=== PATIENT | female | born 1985 | race Caucasian/White ===

== ENCOUNTER 2016-11-23 14:02 | Emergency (ER) | payer SELFPAY ==
[2016-11-23 14:38] VITALS: BP 130/87
--- NOTE | 2016-11-23 16:21 | ED ---
Influenza-Like Illness - HPI Summary HPI Summary: Patient presents with cough and congestion that has been hanging on for approximately 4-8 weeks without improvement. She is coughing up "brownish-green " mucus, and has the same when she blows her nose. She does not have a PCP since she is new to the area. She denies fever, chills, CP or back pain. She does feel SOB but is not in distress. She has some left sided facial discomfort over her sinus. - History of Current Complaint Chief Complaint: EDUpperRespComplaint Time Seen by Provider: 11/23/16 15:58 Hx Obtained From: Patient Onset/Duration: Gradual Onset Severity: Moderate Associated Signs & Symptoms: Cough, Nasal Congestion - Allergy/Home Medications Allergies/Adverse Reactions: Allergies Allergy/AdvReac Type Severity Reaction Status Date / Time No Known Allergies Allergy Verified 11/23/16 14:38 PMH/Surg Hx/FS Hx/Imm Hx Previously Healthy: Yes Infectious Disease History: No Infectious Disease History: Denies: Traveled Outside the [place] in Last 30 Days - Family History Known Family History: Positive: None - Social History Occupation: Employed Full-time Lives: With Family Alcohol Use: Occasionally Substance Use Type: Reports: None Smoking Status (MU): Never Smoked Tobacco Review of Systems Negative: Fever, Chills Positive: Nasal Discharge. Negative: Sore Throat, Ear Ache Negative: Chest Pain Positive: Shortness Of Breath, Cough Positive: Abdominal Pain Negative: Myalgia Negative: Headache All Other Systems Reviewed And Are Negative: Yes Physical Exam Triage Information Reviewed: Yes Vital Signs On Initial Exam: Initial Vitals Temp Pulse Resp BP Pulse Ox 97.9 F 68 15 130/87 100 11/23/16 14:05 11/23/16 14:05 11/23/16 14:05 11/23/16 14:05 11/23/16 14:05 Vital Signs Reviewed: Yes Appearance: Positive: Well-Appearing, No Pain Distress, Well-Nourished Skin: Positive: Warm, Skin Color Reflects Adequate Perfusion, Dry, Soft Head/Face: Positive: Normal Head/Face Inspection Eyes: Positive: EOMI, MADELYN, Conjunctiva Clear ENT: Positive: Hearing grossly normal, Pharynx normal, Nasal congestion. Negative: Tonsillar swelling, Tonsillar exudate Neck: Positive: Supple, Nontender, No Lymphadenopathy Respiratory/Lung Sounds: Positive: Clear to Auscultation, Breath Sounds Present. Negative: Rales, Rhonchi, Wheezes Cardiovascular: Positive: RRR Neurological: Positive: Sensory/Motor Intact, Alert, Oriented to Person Place, Time Psychiatric: Positive: Affect/Mood Appropriate AVPU Assessment: Alert Diagnostics - Vital Signs Vital Signs Temp Pulse Resp BP Pulse Ox 11/23/16 14:05 97.9 F 68 15 130/87 100 - Laboratory Lab Statement: Any lab studies that have been ordered have been reviewed, and results considered in the medical decision making process. - Radiology No standard instances Xray Interpretation: No Acute Changes Radiology Interpretation Completed By: Radiologist Flu Symptom Course/Dx - Diagnoses Differential Diagnosis/HQI/PQRI: Positive: Bronchitis, Influenza, Pneumonia, RSV , Upper Respiratory Infection Provider Diagnoses: Sinusitis Discharge - Discharge Plan Condition: Stable Disposition: HOME Prescriptions: Amoxicillin/Clavulanate TAB* [Augmentin TAB 875*] 875 mg PO BID #19 tab Patient Education Materials: Sinusitis (ED) Referrals: [facility] [Outside] Additional Instructions: Please call the number provided to establish care with a regular provider for follow-up care. Take the antibiotics provided until they are completely gone to insure appropriate treatment. Use over the counter nasal saline spray and cough syrup to manage your symptoms. Return to the emergency department if your symptoms worsen.
[2016-11-23] MEDS ORDERED: Amoxicillin/Clavulanate TAB* 875 MG PO ONE (16:39)
--- NOTE | 2016-11-23 16:53 | RAD ---
HISTORY: Chest congestion for 4 weeks COMPARISONS: None VIEWS: 2: Frontal dual-energy and lateral views of the chest. FINDINGS: CARDIOMEDIASTINAL SILHOUETTE: The cardiomediastinal silhouette is normal. ORIN: The orin are normal. PLEURA: The costophrenic angles are sharp. No pleural abnormalities are noted. LUNG PARENCHYMA: The lungs are clear. ABDOMEN: The upper abdomen is clear. There is no subphrenic gas. BONES AND SOFT TISSUES: No bone or soft tissue abnormalities are noted. OTHER: None. IMPRESSION: NO ACTIVE CARDIOPULMONARY DISEASE.
== END 2016-11-23 17:09 | disposition home or self-care (01) ==
LOC: ED 14:02
DX: J32.9 Chronic sinusitis, unspecified (principal)
CPT/HCPCS: 71020; 99282; A9270-GY

== ENCOUNTER 2017-12-24 10:35 | Emergency (ER) | payer MEDICAID ==
[2017-12-24 11:39] VITALS: BP 128/81
--- NOTE | 2017-12-24 13:23 | UC ---
Respiratory Complaint HPI - HPI Summary HPI Summary: 32 yo HF c/o cough for more than 1-2 months not improving associated with yellow /green and brownish sputum and pleuritic CP. at home smokes which is making her sx worse. Took no OTC meds for this condition. - History of Current Complaint Chief Complaint: UCRespiratory Stated Complaint: RESP ISSUE Time Seen by Provider: 12/24/17 13:08 Hx Obtained From: Patient Hx Last Menstrual Period: irregular, > 1 month ago Onset/Duration: Still Present Severity Initially: Moderate Severity Currently: Moderate Pain Intensity: 0 Character: Cough: Productive, Sputum Description: - SEE HPI Associated Signs And Symptoms: Negative: Fever, Chills - Allergies/Home Medications Allergies/Adverse Reactions: Allergies Allergy/AdvReac Type Severity Reaction Status Date / Time No Known Allergies Allergy Verified 12/24/17 11:39 PMH/Surg Hx/FS Hx/Imm Hx - Additional Past Medical History Additional PMH: none - Surgical History Surgical History: Yes Surgery Procedure, Year, and Place: ovarian cyst removed 2012 - Family History Known Family History: Positive: None - Social History Alcohol Use: Rare Substance Use Type: None Smoking Status (MU): Never Smoked Tobacco Household Exposure Type: Cigarettes Review of Systems Constitutional: Negative Skin: Negative Eyes: Negative ENT: Sinus Pain/Tenderness - with green d/c Respiratory: Cough Cardiovascular: Negative Gastrointestinal: Negative Genitourinary: Negative Motor: Negative Neurovascular: Negative Musculoskeletal: Negative Neurological: Negative Psychological: Negative Is Patient Immunocompromised?: No All Other Systems Reviewed And Are Negative: Yes Physical Exam Triage Information Reviewed: Yes Appearance: No Pain Distress Vital Signs: Initial Vital Signs Temp 36.4 C 12/24/17 11:34 Pulse 65 12/24/17 11:34 Resp 16 12/24/17 11:34 BP 128/81 12/24/17 11:34 Pulse Ox 100 12/24/17 11:34 Eye Exam: Normal ENT Exam: Normal Dental Exam: Normal Neck exam: Normal Neck: Positive: 1 Respiratory: Positive: Rhonchi - With cough Cardiovascular Exam: Normal Abdominal Exam: Normal Musculoskeletal Exam: Normal Neurological Exam: Normal Psychological Exam: Normal Skin Exam: Normal UC Diagnostic Evaluation - Laboratory O2 Sat by Pulse Oximetry: 100 Respiratory Course/Dx - Course Course Of Treatment: ongoing bronchitis and acute sinusitis due to cigarette exposure and after URI, will need to cover with abx for bacterial etiology, Mucinex as prescribed - Differential Dx/Diagnosis Differential Diagnosis/HQI/PQRI: Bronchitis, Lower Resp Infection, Sinusitis Provider Diagnoses: Bronchitis Sinusitis Discharge - Discharge Plan Condition: Stable Disposition: HOME Prescriptions: Azithromycin TAB* [Zithromax TAB (Z-ANDREW) 250 mg #6 tabs] 2 tab PO .TODAY, THEN 1 DAILY #1 andrew guaiFENesin ER TAB [Mucinex*] 600 mg PO BID 7 Days #14 tab.er Patient Education Materials: Acute Bronchitis (ED) Referrals: No Primary Care Phys,NOPCP [Primary Care Provider] - Additional Instructions: as tolerated
== END 2017-12-24 13:25 | disposition home or self-care (01) ==
LOC: UCEAST 10:35
DX: J40 Bronchitis, not specified as acute or chronic (principal); J32.9 Chronic sinusitis, unspecified; Z77.22 Contact with and (suspected) exposure to environmental tobacco smoke (acute) (chronic)
CPT/HCPCS: 87502; 99212; G0463

== ENCOUNTER 2018-01-04 21:33 | Emergency (ER) | payer SELFPAY ==
[2018-01-04] MEDS ORDERED: Acetaminophen TAB* 325 MG PO ONE (22:52)
[2018-01-04] MEDS ORDERED: Cyclobenzaprine TAB* 10 MG PO ONE (23:52)
[2018-01-04] MEDS ORDERED: Cyclobenzaprine TAB* 10 MG ONE (23:55)
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
[2018-01-05 00:50] VITALS: BP 116/56
--- NOTE | 2018-01-05 07:58 | RAD ---
INDICATION: Trauma, back pain. COMPARISON: There are no prior studies available for comparison. TECHNIQUE: 3 views of the lumbar spine were obtained including lateral, AP and a coned-down lateral view of the lumbar sacral junction. FINDINGS: The vertebra are in normal alignment. No fracture is seen. Disc spaces appear maintained. IMPRESSION: NO EVIDENCE FOR FRACTURE OR SUBLUXATION.
== END 2018-01-05 00:47 | disposition home or self-care (01) ==
LOC: ED 21:33
DX: S39.012A Strain of muscle, fascia and tendon of lower back, initial encounter (principal); M62.838 Other muscle spasm; V49.59XA Passenger injured in collision with other motor vehicles in traffic accident, initial encounter; Y92.9 Unspecified place or not applicable
CPT/HCPCS: 36415; 72100; 84702; 99282; A9270-GY

== ENCOUNTER 2018-03-08 06:26 | Emergency (ER) | payer OTHER ==
[2018-03-08] MEDS ORDERED: tiZANidine TAB* 2 MG PO ONE (06:52)
--- NOTE | 2018-03-08 08:32 | RAD ---
HISTORY: Back pain COMPARISONS: None TECHNIQUE: Multiple contiguous axial CT scans were obtained of the lumbar spine without intravenous contrast, with coronal and sagittal multiplanar reformations. FINDINGS: SPINAL CANAL: Evaluation of the central canal is limited on CT technique; however, there is no obvious canalicular mass or epidural hemorrhage. ALIGNMENT: The alignment is normal. VERTEBRAL BODIES: The vertebral bodies are preserved in height. The bones are normal in attenuation. Small accessory ribs are noted at L1. JOINTS: There is facet osteoarthritis at L5-S1. MUSCULATURE: Unremarkable INTERVERTEBRAL DISCS: There is mild diffuse loss of intervertebral disc height throughout the spine. AXIAL IMAGES: T12-L1: There is no osseous neural foraminal narrowing or central canal stenosis. L1-L2: There is no osseous neural foraminal narrowing or central canal stenosis. L2-L3: There is no osseous neural foraminal narrowing or central canal stenosis. L3-L4: There is no osseous neural foraminal narrowing or central canal stenosis. L4-L5: There is a mild broad-based disc bulge. There is no osseous neural foraminal narrowing or central canal stenosis. L5-S1: There is broad-based disc bulge. There is no osseous neural foraminal narrowing or central canal stenosis. SOFT TISSUES: The visualized soft tissues of the abdomen are unremarkable. OTHER: None IMPRESSION: MILD DEGENERATIVE DISC DISEASE AND OSTEOARTHRITIS. THERE IS NO SIGNIFICANT OSSEOUS NEURAL FORAMINAL NARROWING OR CENTRAL CANAL STENOSIS.
[2018-03-08] MEDS ORDERED: Bupivacaine 0.5%* 50 ML VIAL INJ ONE (08:40)
[2018-03-08] MEDS ORDERED: predniSONE TAB* 50 MG PO SCH (09:00)
[2018-03-08] MEDS ORDERED: Bupivacaine 0.5% PF 10 ML VIAL INJ ONE (09:15)
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
[2018-03-08 10:59] VITALS: BP 109/59
== END 2018-03-08 10:57 | disposition home or self-care (01) ==
LOC: ED 06:26
DX: M62.830 Muscle spasm of back (principal)
CPT/HCPCS: 36415; 72131; 84702; 96372; 99282; A9270-GY; J7512

== ENCOUNTER 2018-12-08 08:23 | Emergency (ER) | payer SELFPAY ==
[2018-12-08 08:37] VITALS: BP 141/94
--- NOTE | 2018-12-08 09:33 | UC ---
Respiratory Complaint HPI - HPI Summary HPI Summary: 3 days of cough, congestion, mild sore throat and ear pain. Has chest congestion and is coughing up green phlegm. Has chills but denies fever. No nausea/vomiting. - History of Current Complaint Chief Complaint: UCRespiratory Stated Complaint: COUGH,CONGESTION Time Seen by Provider: 12/08/18 09:11 Hx Obtained From: Patient Hx Last Menstrual Period: irregular, month ago Onset/Duration: Gradual Onset, Lasting Days, Still Present Timing: Constant Severity Initially: Moderate Severity Currently: Moderate Pain Intensity: 0 Pain Scale Used: 0-10 Numeric Character: Cough: Productive Aggravating Factors: Nothing Alleviating Factors: Nothing Associated Signs And Symptoms: Positive: Chills, Wheezing, URI, Nasal Congestion. Negative: Dyspnea, Fever - Allergies/Home Medications Allergies/Adverse Reactions: Allergies Allergy/AdvReac Type Severity Reaction Status Date / Time No Known Allergies Allergy Verified 03/08/18 08:28 Home Medications: Home Medications guaiFENesin LIQ* [Robitussin*] 5 ml PO PRN 12/08/18 [History] PMH/Surg Hx/FS Hx/Imm Hx Respiratory History: Asthma Other History Of: Negative For: Anticoagulant Therapy - Surgical History Surgical History: Yes Surgery Procedure, Year, and Place: ovarian cyst removed 2012 - Family History Known Family History: Positive: None - Social History Alcohol Use: Rare Substance Use Type: Marijuana Substance Use Comment - Amount & Last Used: rare Smoking Status (MU): Never Smoked Tobacco Household Exposure Type: Cigarettes Review of Systems All Other Systems Reviewed And Are Negative: Yes Constitutional: Positive: Chills, Fatigue ENT: Positive: Sore Throat, Ear Ache, Nasal Discharge Respiratory: Positive: Cough Cardiovascular: Positive: Negative Gastrointestinal: Positive: Negative Physical Exam Triage Information Reviewed: Yes Appearance: No Pain Distress, Well-Nourished, Ill-Appearing - APPEARS FATIGUED Vital Signs: Initial Vital Signs Temp 98.2 F 12/08/18 08:31 Pulse 92 12/08/18 08:31 Resp 18 12/08/18 08:31 BP 141/94 12/08/18 08:31 Pulse Ox 96 12/08/18 08:31 Vital Signs Reviewed: Yes Eyes: Positive: Conjunctiva Clear ENT: Positive: Hearing grossly normal, Pharynx normal, TMs normal Neck: Positive: Supple, Nontender, No Lymphadenopathy Respiratory Exam: Normal Cardiovascular Exam: Normal Abdomen Description: Positive: Soft Musculoskeletal: Positive: No Edema Neurological: Positive: Alert Psychological: Positive: Age Appropriate Behavior Skin: Negative: Rashes UC Diagnostic Evaluation - Laboratory O2 Sat by Pulse Oximetry: 96 Respiratory Course/Dx - Differential Dx/Diagnosis Provider Diagnosis: Acute URI Discharge - Sign-Out/Discharge Documenting (check all that apply): Patient Departure All imaging exams completed and their final reports reviewed: No Studies - Discharge Plan Condition: Stable Disposition: HOME Prescriptions: Albuterol HFA INHALER* [Ventolin HFA Inhaler*] 2 puff INH Q4H PRN #1 mdi PRN Reason: Shortness Of Breath predniSONE TAB* [Deltasone TAB*] 50 mg PO DAILY #5 tab Patient Education Materials: Upper Respiratory Infection (ED) Forms: *Work Release Referrals: Tyrell Barnes DO [Doctor of Osteopathy] - If Needed Additional Instructions: YOUR SYMPTOMS ARE LIKELY VIRALLY MEDIATED AND SHOULD RESOLVE ON THEIR OWN WITH TIME. NO INDICATION FOR ANTIBIOTICS AT PRESENT. REST, HYDRATE, OTC MEDS NEEDED. WILL TREAT WITH PREDNISONE AND ALBUTEROL TO HELP WITH AIRWAY INFLAMMATION. SEEK FOLLOW-UP IF YOU ARE NOT IMPROVING OVER THE NEXT 1-2 WEEKS. - Billing Disposition and Condition Condition: STABLE Disposition: Home
== END 2018-12-08 09:27 | disposition home or self-care (01) ==
LOC: UCEAST 08:23
DX: J06.9 Acute upper respiratory infection, unspecified (principal)
CPT/HCPCS: 99212; G0463

== ENCOUNTER 2018-12-22 19:17 | Emergency (ER) | payer MEDICAID ==
[2018-12-22] MEDS ORDERED: Ibuprofen TAB* 400 MG PO ONE (20:55)
[2018-12-22] MEDS ORDERED: Tetan/Diph/Pertus SYR(Tdap)* 0.5 ML SYR(BOOSTRIX) use SYR IM ONE (20:55)
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
[2018-12-22 22:26] VITALS: BP 131/85
[2018-12-22] MEDS ORDERED: DOXYcycline CAP(*) 100 MG PO ONE (22:36)
[2018-12-22] MEDS ORDERED: Amoxicillin PO (*) 500 MG CAP PO ONE (22:37)
== END 2018-12-22 22:55 | disposition home or self-care (01) ==
LOC: UCEAST 19:17
DX: S61.012A Laceration without foreign body of left thumb without damage to nail, initial encounter (principal); S00.402A Unspecified superficial injury of left ear, initial encounter; H72.92 Unspecified perforation of tympanic membrane, left ear; W26.0XXA Contact with knife, initial encounter; Y92.9 Unspecified place or not applicable
CPT/HCPCS: 12001; 70486; 90715; 99212; A9270-GY; G0463

== ENCOUNTER 2019-01-26 20:04 | Emergency (ER) | payer MEDICAID, OTHER ==
[2019-01-26 20:12] VITALS: BP 127/82
[2019-01-26] MEDS ORDERED: Lidocaine/Epineph/Tetraca (NF) 4 ML BTL TOPICAL ONE ×2 (22:38)
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
[2019-01-26] MEDS ORDERED: Lidocaine/Epineph/Tetraca GEL* 3 ML GEL IN SYR ONE (22:44)
== END 2019-01-26 23:35 | disposition home or self-care (01) ==
LOC: UCEAST 20:04
DX: S09.90XA Unspecified injury of head, initial encounter (principal); S01.01XA Laceration without foreign body of scalp, initial encounter; S61.011A Laceration without foreign body of right thumb without damage to nail, initial encounter; Y04.0XXA Assault by unarmed brawl or fight, initial encounter; Y92.89 Other specified places as the place of occurrence of the external cause
CPT/HCPCS: 12001; 70450; 99211; A9270-GY; G0463

== ENCOUNTER 2019-02-05 10:22 | Emergency (ER) | payer OTHER ==
[2019-02-05 10:30] VITALS: BP 123/78
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
== END 2019-02-05 11:15 | disposition home or self-care (01) ==
LOC: UCEAST 10:22
DX: S01.01XD Laceration without foreign body of scalp, subsequent encounter (principal); S39.012A Strain of muscle, fascia and tendon of lower back, initial encounter; Y04.0XXD Assault by unarmed brawl or fight, subsequent encounter; X58.XXXA Exposure to other specified factors, initial encounter; Y92.9 Unspecified place or not applicable
CPT/HCPCS: 71046; 81003; 99212; G0463

== ENCOUNTER 2019-11-06 13:57 | Emergency (ER) | payer OTHER ==
[2019-11-06 14:08] VITALS: BP 121/80
--- NOTE | 2019-11-06 14:09 | UC ---
Headache HPI - HPI Summary HPI Summary: 34 yo female presents with concerns about . She tells me that her LMP was 09/09/19 and she missed her period in september and has not had one yet this month. She has been trying to get with her boyfriend for many years. She has taken several home tests that have been positive, but she states this has happened before and she ended up not being . Over the last week or two has been having nausea and mild headaches. She has not been undergoing any fertility treatments. Denies SOB, chest pain, abdominal/pelvic pain, vaginal bleeding or discharge. - History Of Current Complaint Chief Complaint: UCAbdominalPain Stated Complaint: NAUSEA HEADACHE Time Seen by Provider: 11/06/19 14:08 Hx Obtained From: Patient Hx Last Menstrual Period: september 09 2019 Currently Pain Is: Moderate Pain Intensity: 7 Pain Scale Used: 0-10 Numeric - Allergies/Home Medications Allergies/Adverse Reactions: Allergies Allergy/AdvReac Type Severity Reaction Status Date / Time No Known Allergies Allergy Verified 11/06/19 14:08 Home Medications: Home Medications NK [No Home Medications Reported] 11/06/19 [History Confirmed 11/06/19] PMH/Surg Hx/FS Hx/Imm Hx - Additional Past Medical History Additional PMH: None Other History Of: Negative For: Anticoagulant Therapy - Surgical History Surgical History: Yes Surgery Procedure, Year, and Place: ovarian cyst removed 2012 - Family History Known Family History: Positive: None - Social History Lives: With Family Alcohol Use: Occasionally Substance Use Type: Marijuana Substance Use Comment - Amount & Last Used: rare Smoking Status (MU): Never Smoked Tobacco Household Exposure Type: Cigarettes - Immunization History Hx Tetanus, Diphtheria Vaccination: No Review of Systems All Other Systems Reviewed And Are Negative: No Constitutional: Positive: Negative Skin: Positive: Negative Eyes: Positive: Negative ENT: Positive: Negative Respiratory: Positive: Negative Cardiovascular: Positive: Negative Gastrointestinal: Positive: Nausea Genitourinary: Positive: Negative Neurological: Positive: Headache Psychological: Positive: Negative Physical Exam - Summary Physical Exam Summary: GENERAL: NAD. WDWN. No pain distress. SKIN: No rashes, sores, ulcers, masses, lesions. HEENT: Head: AT/NC. Eyes: PERRLA. EOM intact. Conjunctiva clear without inflammation or discharge. Ears: Hearing grossly normal. TMs intact, no bulging, erythema, or edema. Nose: Nasal mucosa pink and moist. NTTP maxillary and frontal sinus. Throat: Posterior oropharynx without exudates, erythema, or tonsillar enlargement. Uvula midline. NECK: Supple. Nontender. FROM CHEST: CTAB. No r/r/w. No accessory muscle use. Breathing comfortably and in no distress. CV: RRR. Pulses intact. Brisk cap refill. ABDOMEN: Soft. NTTP. Bowel sounds present NEURO: A&Ox3. PSYCH: Age appropriate behavior. Triage Information Reviewed: Yes Vital Signs: Initial Vital Signs Temp 97.7 F 11/06/19 14:03 Pulse 69 11/06/19 14:03 Resp 18 11/06/19 14:03 BP 121/80 11/06/19 14:03 Pulse Ox 99 11/06/19 14:03 Laboratory Tests 11/06/19 11/06/19 14:14 14:16 POC Urine Color Yellow POC Urine Clarity Clear POC Urine pH 6.0 POC Ur Specif [place] 1.020 POC Urine Protein Negative POC Ur Glucose (UA) Negative POC Urine Ketones Negative POC Urine Blood Negative POC Urine Nitrite Negative POC Urine Bilirubin Negative POC Urine Urobilinogen 0.2 POC U Leukocyte Esteras Negative POC Ur Test Positive A Vital Signs Reviewed: Yes Headache Course/Dx - Course Course Of Treatment: POC positive. Given that she is trying to get and has missed her periods - likely today. Discussed with pt and her boyfriend with her and they are very excited. Will draw for blood HCG to confirm. Recommended refraining from drinking alcohol, smoking, or using illicit drugs. Start a vitamin and f/u with OBGYN. If develops abdominal/pelvic pain, vomiting, or vaginal bleeding to go to the ED. - Differential Dx/Diagnosis Provider Diagnosis: Positive test Discharge ED - Sign-Out/Discharge Documenting (check all that apply): Patient Departure All imaging exams completed and their final reports reviewed: No Studies - Discharge Plan Condition: Stable Disposition: HOME Patient Education Materials: Vitamins (By mouth), (ED) Referrals: Jorge A East MD [Primary Care Provider] - Angella Olivares MD [Medical Doctor] - As Soon As Possible Gino Salvador MD [Medical Doctor] - As Soon As Possible Additional Instructions: If you develop a fever, shortness of breath, chest pain, new or worsening symptoms - please call your PCP or go to the ED immediately. Your urine test was positive today - this is likely the cause of your symptoms. --- We have drawn a blood test for confirmation. I recommend that you start taking a vitamin and do not engage in smoking/drinking Please call an OBGYN to schedule an appointment for further care. If you notice any abdominal pain, pelvic pain, or vaginal bleeding - please go to the ER immediately. - Billing Disposition and Condition Condition: STABLE Disposition: Home
== END 2019-11-06 14:34 | disposition home or self-care (01) ==
LOC: UCEAST 13:57
DX: O99.89 Other specified diseases and conditions complicating pregnancy, childbirth and the puerperium (principal); R11.0 Nausea; R51 Headache
CPT/HCPCS: 36415; 81003; 84702; 99211; G0463

== ENCOUNTER 2019-11-07 13:52 | Emergency (ER) | payer OTHER ==
--- NOTE | 2019-11-07 15:12 | ED ---
- HPI Summary HPI Summary: Patient is a 34-year-old female who presents emergency Department with complaints of lower abdominal pain early . Patient is unsure for many weeks she has been states her last normal menstrual cycle was 2 months ago. Patient was seen at [facility] yesterday and had a positive beta hCG. Patient states today she noticed lower abdominal pain and cramping and presents for evaluation. Denies vaginal discharge or bleeding, urinary symptoms. Patient has not seen OB yet and has not had a confirmed intrauterine . A0. Symptoms are moderate in severity. No current modifying factors. - History of Current Complaint Chief Complaint: EDOBProblems Stated Complaint: ISSUES PER PT Time Seen by Provider: 11/07/19 14:54 Hx Obtained From: Patient Pain Intensity: 5 - Assessment Hx Now: No - Allergies/Home Medications Allergies/Adverse Reactions: Allergies Allergy/AdvReac Type Severity Reaction Status Date / Time No Known Allergies Allergy Verified 11/07/19 13:58 PMH/Surg Hx/FS Hx/Imm Hx Previously Healthy: Yes Endocrine/Hematology History: Denies: Hx Anticoagulant Therapy, Hx Blood Disorders Respiratory History: Reports: Hx Asthma - as a child - worse when she has URI - controlled at this time Denies: Hx Chronic Obstructive Pulmonary Disease (COPD) Musculoskeletal History: Denies: Hx Arthritis, Hx Back Problems - Surgical History Surgery Procedure, Year, and Place: ovarian cyst removed 2012 Infectious Disease History: No Infectious Disease History: Denies: Traveled Outside the [place] in Last 30 Days - Family History Known Family History: Positive: None, Non-Contributory - Social History Occupation: Employed Full-time Lives: With Family Alcohol Use: Occasionally Hx Substance Use: No Substance Use Type: Reports: Marijuana Substance Use Comment - Amount & Last Used: rare Hx Tobacco Use: No - PT AROUND SECOND HAND SMOKE Smoking Status (MU): Never Smoked Tobacco Review of Systems Constitutional: Negative Negative: Fever Cardiovascular: Negative Respiratory: Negative Positive: Abdominal Pain. Negative: Vomiting, Nausea Genitourinary: Negative Negative: dysuria, discharge All Other Systems Reviewed And Are Negative: Yes Physical Exam - Physical Exam Triage Information Reviewed: Yes Vital Signs Reviewed: Yes Appearance: Positive: Well-Appearing - Pt. sitting in recliner in NAD. Skin: Positive: Warm, Dry Head/Face: Positive: Normal Head/Face Inspection Eyes: Positive: Normal, EOMI Neck: Positive: Supple Respiratory/Lung Sounds: Positive: Clear to Auscultation, Breath Sounds Present Cardiovascular: Positive: Normal, RRR Abdomen Description: Positive: Other: - Abd. is soft with mild lower abd. tenderness bilaterally. No rebound or guarding. Neurological: Positive: Normal, CN Intact II-III Psychiatric: Positive: Affect/Mood Appropriate Procedures - Sedation Patient Received Moderate/Deep Sedation with Procedure: No Diagnostics - Vital Signs Vital Signs Temp Pulse Resp BP Pulse Ox 11/07/19 13:54 97.2 F 73 16 129/86 100 - Laboratory Lab Statement: Any lab studies that have been ordered have been reviewed, and results considered in the medical decision making process. Course/Dx - Course Course Of Treatment: Patient with complaints of mild abdominal pain in early . Ultrasound ordered to evaluate for IUP. Beta hCG 54,000. Patient has had no vaginal bleeding or discharge. Urinalysis negative for infection.ultrasound as noted below. US per radiology: IMPRESSION: Corpus luteal cyst in the left ovary. Single intrauterine gestation with a. gestational age of 6 weeks 6 days with estimated date of delivery at June 26, 2020. heart activity at 1 26 bpm. Results discussed patient. She has an appointment with OB the first week in November. Discharged home or return if symptoms change or worsen. - Differential Diagnosis/HQI/PQRI: Spontaneous , Threatened , Early , UTI - Diagnoses Provider Diagnoses: Early stage of Discharge ED - Sign-Out/Discharge Documenting (check all that apply): Patient Departure - Discharge Plan Condition: Good Disposition: HOME Patient Education Materials: (ED) Referrals: Juan C Goodson MD [Medical Doctor] - Jorge A East MD [Primary Care Provider] - Additional Instructions: Follow up with OB as scheduled Return to ER if symptoms change or worsen - Billing Disposition and Condition Condition: GOOD Disposition: Home - Attestation Statements Provider Attestation: I was available for consultation for this patient. I did not evaluate the patient or participate in any medical decision making or disposition decisions unless I am specifically named in the chart as having consulted on the patient. If I have consulted on the patient, please see my own ED note on the patient encounter. Viv Mena MD
[2019-11-07 16:23] LABS: Urine Appearance Cloudy; Urine Bilirubin Negative (Negative); Urine Blood Negative (Negative); Urine Color Yellow; Urine Glucose Negative (Negative); Urine Ketones Negative (Negative); Urine Nitrite Negative (Negative); Urine Protein Negative (Negative); Urine Specific Gravity 1.026 (1.010-1.030); Urine Urobilinogen Negative (Negative)
[2019-11-07 16:56] VITALS: BP 124/64
== END 2019-11-07 16:50 | disposition home or self-care (01) ==
LOC: ED 13:52
DX: O26.891 Other specified pregnancy related conditions, first trimester (principal); R10.30 Lower abdominal pain, unspecified; Z3A.01 Less than 8 weeks gestation of pregnancy
CPT/HCPCS: 36415; 76817; 81003; 84702; 99282

== ENCOUNTER 2020-01-03 17:43 | Emergency (ER) | payer SELFPAY ==
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
[2020-01-03 22:07] VITALS: BP 127/80
== END 2020-01-03 22:06 | disposition home or self-care (01) ==
LOC: ED 17:43
DX: O26.892 Other specified pregnancy related conditions, second trimester (principal); M25.512 Pain in left shoulder; V89.2XXA Person injured in unspecified motor-vehicle accident, traffic, initial encounter; Y92.410 Unspecified street and highway as the place of occurrence of the external cause; Z3A.15 15 weeks gestation of pregnancy
CPT/HCPCS: 76815; 99282

== ENCOUNTER 2020-06-22 10:47 | Inpatient (IN) ==
[2020-06-22] MEDS ORDERED: Lactated Ringers 1000 ml BAG 1,000 ML IV ONE (12:13)
[2020-06-22 13:00] LABS: Urine Appearance Cloudy; Urine Bilirubin Negative (Negative); Urine Blood Negative (Negative); Urine Color Amber; Urine Glucose Negative (Negative); Urine Ketones Trace (Negative); Urine Nitrite Negative (Negative); Urine Protein 1+(30 mg/dL) (Negative); Urine Specific Gravity 1.033 (1.010-1.030); Urine Urobilinogen Negative (Negative)
[2020-06-22] MEDS ORDERED: Lactated Ringers 1000 ml BAG 1,000 ML IV SCH (13:00)
[2020-06-22 13:10] LABS: Urine Bacteria Absent (Absent); Urine Red Blood Cell 1+(3-5/hpf) (Absent); Urine Squamous Epithelial Cell Present (Absent); Urine White Blood Cell Trace(0-5/hpf) (Absent)
[2020-06-22 13:32] LABS: Urine Benzodiazepine Screen None Detected (None Detect); Urine Cannabinoids Screen None Detected (None Detect); Urine Opiates Screen None Detected (None Detect)
[2020-06-22] MEDS ORDERED: Morphine 10 MG/ML VIAL (1 ml) IM ONE (22:48)
[2020-06-22] MEDS ORDERED: Promethazine INJ(RESTRICTED) 25 MG/ML 1 ml VIAL IM ONE (22:49)
[2020-06-23] MEDS ORDERED: Oxytocin in LR 20 UNITS/1,000 ML BAG IVPB SCH ×2 (10:00→18:00)
[2020-06-23 10:24] LABS: ABS Eosinophils 0.1 10^3/ul (0-0.6); ABS Lymphocytes 1.8 10^3/ul (1.0-4.8); ABS Monocytes 0.8 10^3/ul (0-0.8); ABS Neutrophils 7.4 10^3/ul (1.5-7.7); Eosinophil % 1.1 %; Hematocrit 37 % (35-47); Hemoglobin 12.8 g/dL (12.0-16.0); Lymphocyte % 17.8 %; Mean Corpuscular HGB Conc 35 g/dL (31-36); Mean Corpuscular Hemoglobin 33 pg (27-31); Mean Corpuscular Volume 95 fL (80-97); Mean Platelet Volume 9.8 fL (7.4-10.4); Platelet Count 230 10^3/uL (150-450); Red Blood Count 3.85 10^6 /uL (3.70-4.87); Red Cell Distribution Width 13 % (10-15)
[2020-06-23] MEDS ORDERED: OBEPIDURAL 250 ML EPIDURAL ONE (11:56)
[2020-06-23] MEDS ORDERED: Sodium Citrate/Citric Acid LIQ 15 ML UDC PO PRN (12:19)
[2020-06-23] MEDS ORDERED: Phenylephrine 40 mcg/mL 10mL (400mcg) SYRINGE IV PUSH PRN ×2 (12:19)
[2020-06-23] MEDS ORDERED: Lactated Ringers 1000 ml BAG 1,000 ML IV ONE (12:19)
[2020-06-23] MEDS ORDERED: OBEPIDURAL 250 ML EPIDURAL SCH (13:00)
[2020-06-23] MEDS ORDERED: Lactated Ringers 1000 ml BAG 1,000 ML IV SCH ×2 (13:00→18:00)
[2020-06-23] MEDS ORDERED: Witch Hazel PAD JAR TOPICAL PRN (18:00)
[2020-06-23] MEDS ORDERED: Dibucaine 1% OINT 28.35 GM TUBE PR PRN (18:00)
[2020-06-23] MEDS ORDERED: Glycerin ADULT 2.4 gm SUPP PR PRN (18:00)
[2020-06-24 10:02] LABS: ABS Basophils 0.1 10^3/ul (0-0.2); ABS Eosinophils 0.1 10^3/ul (0-0.6); ABS Lymphocytes 1.7 10^3/ul (1.0-4.8); ABS Monocytes 1.1 10^3/ul (0-0.8); Eosinophil % 0.8 %; Hematocrit 35 % (35-47); Hemoglobin 11.7 g/dL (12.0-16.0); Lymphocyte % 11.1 %; Mean Corpuscular HGB Conc 34 g/dL (31-36); Mean Corpuscular Hemoglobin 32 pg (27-31); Mean Corpuscular Volume 96 fL (80-97); Mean Platelet Volume 9.6 fL (7.4-10.4); Platelet Count 208 10^3/uL (150-450); Red Blood Count 3.61 10^6 /uL (3.70-4.87); Red Cell Distribution Width 13 % (10-15)
[2020-06-24 16:30] VITALS: BP 126/68
== END 2020-06-24 20:16 | disposition home or self-care (01) | DRG 560 ==
LOC: MCHOBOUT 10:47 → MCHOB 12:24
PROVIDERS: ADMIT Advanced Practice Midwife; ATTEND Advanced Practice Midwife